=== PATIENT | female | born 1985 | race Caucasian/White ===

== ENCOUNTER 2017-05-09 15:54 | Emergency (ER) | payer OTHER ==
[~2017-05-09 15:54] MED LIST: BENTYL10 MG PO; BIAXIN500 MG PO; BIRTH CONTROL1 EAC1 PO; CLARITIN10 MG PO; MOTRIN600 MG PO; ZOFRAN ODT4 MG PO
[2017-05-09] MEDS ORDERED: TRI-LO-SPRINTE1 EACH PO (15:59)
[2017-05-09] MEDS ORDERED: ROBAXIN500 M1 PO (16:11)
[2017-05-09] MEDS ORDERED: MEDROL DOSEPAK4 MG PO (16:11)
== END 2017-05-09 16:40 | disposition home or self-care (01) ==
LOC: ED 15:54
DX: M54.2 Cervicalgia (principal); R51 Headache; Z79.899 Other long term (current) drug therapy

== ENCOUNTER 2017-09-25 17:48 | Emergency (ER) | payer OTHER ==
[~2017-09-25] VITALS: Ht 157.4 cm; Wt 50.8 kg
[~2017-09-25 17:48] MED LIST changes: +MEDROL DOSEPAK4 MG PO; +ROBAXIN500 M1 PO; +TRI-LO-SPRINTE1 EACH PO
[2017-09-25 18:28] LABS: BILIRUBIN NEGATIVE (NEGATIVE); BLOOD NEGATIVE (NEGATIVE); CLARITY CLEAR (CLEAR); COLOR YELLOW (YELLOW); GLUCOSE NEGATIVE (NEGATIVE); KETONE NEGATIVE (NEGATIVE); LEUKO ESTERASE NEGATIVE (NEGATIVE); NITRITE NEGATIVE (NEGATIVE); PH 6.5 (5.0-9.0); SPECIFIC GRAVITY <= 1.005 (1.005-1.030); UROBILINOGEN 0.2 E.U./dl (0.2-1.0)
[2017-09-25 18:33] LABS: BASO % 0.4 % (0.0-1.0); EOS # 0.1 10*3/uL (0.0-0.4); EOS % 1.2 % (1.0-4.0); HEMATOCRIT 37.2 % (37.0-47.0); HEMOGLOBIN 12.7 g/dl (12.0-16.0); LYMPH # 2.5 10*3/uL (1.3-4.4); LYMPH % 29.2 % (27.0-41.0); MEAN CELL VOLUME 87.1 fl (81.0-99.0); MEAN CORPUSCULAR HGB 29.7 pg (27.0-31.0); MEAN CORPUSCULAR HGB CONC 34.1 g/dl (33.0-37.0); MEAN PLATELET VOLUME 10.7 fl (9.6-12.3); MONO # 0.6 10*3/uL (0.1-1.0); MONO % 6.4 % (3.0-9.0); NEUT # 5.4 10*3/uL (2.3-7.9); NEUT % 62.7 % (47.0-73.0); PLATELET COUNT AUTOMATED 303 10*3/uL (130-400); RED BLOOD COUNT 4.27 10*6/uL (4.10-5.10); RED CELL DISTRI WIDTH 11.4 % (0-14.5); WHITE BLOOD COUNT 8.5 10*3/uL (4.8-10.8)
[2017-09-25 18:38] LABS: BACTERIA TRACE; WBC 0-2 wbc/hpf (0-5)
[2017-09-25 18:44] LABS: BUN 6 mg/dl (7-24); CHLORIDE 104 mmol/L (98-107); POTASSIUM 3.7 mmol/L (3.5-5.1); SODIUM 138 mmol/L (136-145)
== END 2017-09-25 21:07 | disposition home or self-care (01) ==
LOC: ED 17:48
PROVIDERS: Emergency Medicine
DX: O26.891 Other specified pregnancy related conditions, first trimester (principal); R51 Headache; R09.81 Nasal congestion; Z3A.01 Less than 8 weeks gestation of pregnancy; Z79.899 Other long term (current) drug therapy

== ENCOUNTER 2018-07-25 20:10 | Emergency (ER) | payer OTHER ==
[~2018-07-25] VITALS: Ht 157.4 cm; Wt 54.4 kg
[2018-07-25] MEDS ORDERED: TRI-SPRINTEC T1 EACH PO (20:19)
[2018-07-25] MEDS ORDERED: LEVOTHYROXINE100 MC1 PO (20:19)
[2018-07-25] MEDS ORDERED: Hydralazine Hyd25 MG PO (20:21)
[2018-07-25 21:18] LABS: ALBUMIN 3.8 gm/dl (3.1-4.5); ALKALINE PHOSPHATASE 44 U/L (45-117); BUN 5 mg/dl (7-24); CHLORIDE 109 mmol/L (98-107); CREATININE 0.73 mg/dL (0.55-1.02); POTASSIUM 3.5 mmol/L (3.5-5.1); SGOT/AST 14 IU/L (3-35); SGPT/ALT 22 U/L (12-78); SODIUM 140 mmol/L (136-145); TOTAL PROTEIN 7.5 gm/dL (6.4-8.2)
[2018-07-25 21:21] LABS: B-hCG (QUALITATIVE) NEGATIVE (NEGATIVE)
[2018-07-25 21:24] LABS: BASO % 0.3 % (0.0-1.0); EOS # 0.1 10*3/uL (0.0-0.4); HEMATOCRIT 37.7 % (37.0-47.0); HEMOGLOBIN 12.5 g/dl (12.0-16.0); LYMPH # 2.5 10*3/uL (1.3-4.4); LYMPH % 25.2 % (27.0-41.0); MEAN CELL VOLUME 90.2 fl (81.0-99.0); MEAN CORPUSCULAR HGB 29.9 pg (27.0-31.0); MEAN CORPUSCULAR HGB CONC 33.2 g/dl (33.0-37.0); MEAN PLATELET VOLUME 10.5 fl (9.6-12.3); MONO # 0.5 10*3/uL (0.1-1.0); MONO % 4.8 % (3.0-9.0); NEUT # 6.7 10*3/uL (2.3-7.9); NEUT % 68.5 % (47.0-73.0); PLATELET COUNT AUTOMATED 248 10*3/uL (130-400); RED BLOOD COUNT 4.18 10*6/uL (4.10-5.10); RED CELL DISTRI WIDTH 11.9 % (0-14.5); WHITE BLOOD COUNT 9.7 10*3/uL (4.8-10.8)
[2018-07-25] MEDS ORDERED: ZOFRAN ODT4 MG SL (23:29)
[2018-07-25] MEDS ORDERED: Motrin,Rufen800 MG PO (23:29)
== END 2018-07-25 23:46 | disposition home or self-care (01) ==
LOC: ED 20:10
PROVIDERS: Emergency Medicine Emergency Medical Services
DX: G43.909 Migraine, unspecified, not intractable, without status migrainosus (principal); Z79.899 Other long term (current) drug therapy

== ENCOUNTER 2019-04-26 18:47 | Emergency (ER) | payer OTHER ==
[~2019-04-26] VITALS: Wt 52.2 kg
[~2019-04-26 18:47] MED LIST changes: +Hydralazine Hyd25 MG PO; +LEVOTHYROXINE100 MC1 PO; +Motrin,Rufen800 MG PO; +TRI-SPRINTEC T1 EACH PO; +ZOFRAN ODT4 MG SL
== END 2019-04-26 21:10 | disposition home or self-care (01) ==
LOC: ED 18:47
DX: G43.909 Migraine, unspecified, not intractable, without status migrainosus (principal); Z79.899 Other long term (current) drug therapy

== ENCOUNTER 2020-05-23 19:03 | Emergency (ER) | payer OTHER, BC ==
[~2020-05-23] VITALS: Ht 157.4 cm; Wt 56.7 kg
[2020-05-23] MEDS ORDERED: KENALOG 0.025%15 GM T (23:53)
[2020-05-23] MEDS ORDERED: CEPHALEXIN500 M1 PO (23:53)
[2020-05-24] MEDS ORDERED: CYCLOBENZAPRINE5 M3 PO (00:03)
[2020-05-24] MEDS ORDERED: Motrin,Rufen800 MG PO (00:03)
== END 2020-05-24 00:03 | disposition home or self-care (01) ==
LOC: ED 19:03
DX: S80.12XA Contusion of left lower leg, initial encounter (principal); S80.11XA Contusion of right lower leg, initial encounter; S60.222A Contusion of left hand, initial encounter; S70.311A Abrasion, right thigh, initial encounter; T63.441A Toxic effect of venom of bees, accidental (unintentional), initial encounter; Z79.899 Other long term (current) drug therapy; Y92.89 Other specified places as the place of occurrence of the external cause; V86.59XA Driver of other special all-terrain or other off-road motor vehicle injured in nontraffic accident, initial encounter; Y93.89 Activity, other specified; Y99.8 Other external cause status

== ENCOUNTER 2020-06-20 09:59 | Emergency (ER) | payer OTHER, BC ==
[~2020-06-20] VITALS: Ht 157.4 cm; Wt 56.2 kg
[~2020-06-20 09:59] MED LIST changes: +CEPHALEXIN500 M1 PO; +CYCLOBENZAPRINE5 M3 PO; +KENALOG 0.025%15 GM T
[2020-06-20] MEDS ORDERED: LISINOPRIL2.5 MG PO (11:08)
[2020-06-20 11:22] LABS: BASO % 0.5 % (0.0-1.0); EOS # 0.1 10*3/uL (0.0-0.4); EOS % 1.7 % (1.0-4.0); HEMATOCRIT 44.3 % (37.0-47.0); LYMPH # 1.9 10*3/uL (1.3-4.4); LYMPH % 31.8 % (27.0-41.0); MEAN CELL VOLUME 88.2 fl (81.0-99.0); MEAN CORPUSCULAR HGB 29.3 pg (27.0-31.0); MEAN CORPUSCULAR HGB CONC 33.2 g/dl (33.0-37.0); MEAN PLATELET VOLUME 10.3 fl (9.6-12.3); MONO # 0.4 10*3/uL (0.1-1.0); NEUT # 3.5 10*3/uL (2.3-7.9); NEUT % 58.8 % (47.0-73.0); PLATELET COUNT AUTOMATED 327 10*3/uL (130-400); RED BLOOD COUNT 5.02 10*6/uL (4.10-5.10); RED CELL DISTRI WIDTH 11.5 % (0-14.5); WHITE BLOOD COUNT 5.9 10*3/uL (4.8-10.8)
[2020-06-20 11:32] LABS: BILIRUBIN NEGATIVE (NEGATIVE); BLOOD NEGATIVE (NEGATIVE); CLARITY CLEAR (CLEAR); COLOR YELLOW (YELLOW); GLUCOSE NEGATIVE (NEGATIVE); KETONE NEGATIVE (NEGATIVE); SPECIFIC GRAVITY 1.005 (1.005-1.030); UROBILINOGEN 0.2 E.U./dl (0.2-1.0)
[2020-06-20 11:33] LABS: LEUKO ESTERASE NEGATIVE (NEGATIVE); NITRITE NEGATIVE (NEGATIVE)
[2020-06-20 11:36] LABS: BUN 10 mg/dl (7-24); CHLORIDE 110 mmol/L (98-107); CREATININE 0.85 mg/dL (0.55-1.02); POTASSIUM 4.3 mmol/L (3.5-5.1); SODIUM 140 mmol/L (136-145)
[2020-06-20 11:38] LABS: BACTERIA 1+
[2020-06-20 11:39] LABS: RBC 0-2 rbc/hpf (0-2)
== END 2020-06-20 13:56 | disposition home or self-care (01) ==
LOC: ED 09:59
PROVIDERS: Emergency Medicine
DX: G43.909 Migraine, unspecified, not intractable, without status migrainosus (principal); Z79.899 Other long term (current) drug therapy

== ENCOUNTER 2022-03-04 08:54 | Emergency (ER) | payer OTHER ==
[~2022-03-04] VITALS: Ht 157.4 cm; Wt 59.0 kg
[~2022-03-04 08:54] MED LIST changes: +LISINOPRIL2.5 MG PO
[2022-03-04] MEDS ORDERED: BENZONATATE200 MG PO (11:26)
== END 2022-03-04 11:48 | disposition home or self-care (01) ==
LOC: ED 08:54
DX: B34.9 Viral infection, unspecified (principal); J32.8 Other chronic sinusitis; Z79.899 Other long term (current) drug therapy